=== PATIENT | female | born 1975 | race African-American/Black ===

== ENCOUNTER 2017-03-04 19:40 | Emergency (ER) | payer OTHER ==
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
[~2017-03-04 19:40] MED LIST: FLAGYL PO; LEVAQUIN PO; MULTI-VITAMIN1 TAB PO; ZOLOFT PO
== END 2017-03-04 23:04 | disposition home or self-care (01) ==
LOC: CED 19:40 → CFTX 19:40
DX: S13.4XXA Sprain of ligaments of cervical spine, initial encounter (principal); S23.3XXA Sprain of ligaments of thoracic spine, initial encounter; J98.01 Acute bronchospasm; R03.0 Elevated blood-pressure reading, without diagnosis of hypertension; F17.210 Nicotine dependence, cigarettes, uncomplicated; Z88.0 Allergy status to penicillin; V49.50XA Passenger injured in collision with unspecified motor vehicles in traffic accident, initial encounter; Y92.410 Unspecified street and highway as the place of occurrence of the external cause
CPT/HCPCS: 71020; 72040; 72072; 84703; 94640; 99284